=== PATIENT | male | born 1935 | race Caucasian/White ===

== ENCOUNTER → 2017-06-10 | Outpatient (CLI) | payer OTHER ==
[~2017-06-10] MED LIST: ASPCH81X PO; ATOR-22 PO; CLOP1TAB15 PO; DOCU100C31 PO; METO25TA56 PO; PANT40TA PO; TAMS0.4C38 PO
[2017-06-10 08:36] LABS: BASO % 0.3 %; BASO ABS # 0.02 K/uL (0-0.2); EOS ABS # 0.14 K/uL (0-0.5); HEMATOCRIT 31.2 % (42-52); HEMOGLOBIN 9.9 g/dL (14.0-18.0); IG# 0.08 K/uL (0.00-0.02); LYMPH % 13.5 %; LYMPH ABS # 0.94 K/uL (1.2-3.4); MEAN CELL VOLUME 93.4 fL (80-100); MEAN CORPUSCULAR HEMOGLOBIN 29.6 pg (25-34); MEAN CORPUSCULAR HGB CONC 31.7 g/dl (32-36); MEAN PLATELET VOLUME 9.6 fL (7.4-10.4); MONO % 12.8 %; MONO ABS # 0.89 K/uL (0.11-0.59); NEUT % 70.2 %; NEUT ABS # 4.87 K/uL (1.4-6.5); PLATELET COUNT 328 K/uL (130-400); RED CELL DISTRIBUTION WIDTH CV 16.8 % (11.5-14.5); RED CELL DISTRIBUTION WIDTH SD 57.8 fL (36.4-46.3); WHITE BLOOD COUNT 6.94 K/uL (4.8-10.8)
[2017-06-10 08:58] LABS: ALBUMIN 1.9 gm/dl (3.4-5.0); ALT/SGPT 18 U/L (12-78); BLOOD UREA NITROGEN 11 mg/dl (7-18); CALCIUM 8.7 mg/dl (8.5-10.1); CARBON DIOXIDE 34 mmol/L (21-32); CREATININE 0.56 mg/dl (0.60-1.40); GLUCOSE 120 mg/dl (70-99); POTASSIUM 3.6 mmol/L (3.5-5.1); SODIUM 136 mmol/L (136-145)
[2017-06-10 09:01] LABS: ALKALINE PHOSPHATASE 65 U/L (45-117); AST/SGOT 24 U/L (15-37); TOTAL PROTEIN 5.7 gm/dl (6.4-8.2)
== END ==
LOC: C.LABUPNIT 08:19
PROVIDERS: ATTEND Nurse Practitioner Family
DX: D64.9 Anemia, unspecified (principal); I10 Essential (primary) hypertension

== ENCOUNTER → 2017-06-14 | Outpatient (CLI) | payer OTHER ==
[~2017-06-14] MED LIST changes: +ACET-1175 PEG; +ALBINSX TR; +APIX1TAB3 PEG; +ASPI-461 PEG; +ATOR-22 PEG; -ATOR-22 PO; +ATRO1SOL13 SL; +CHOLCAP10 PEG; +CRD200 PEG; +FERR220E2 PEG; +FRS/40 PEG; +GUAI100S16 PEG; +IPRASOL4 INH; +LABE100T23 PEG; +LANS30TA3 PEG; +LEVO1TAB35 PEG; +LIQUID PROTEIN PEG; +LORA-741 PEG; +MELA1TAB49 PEG; +MULT1LIQ6 PEG; +NTRGSL/4 UT; +OXYC-57 PEG; +PRDXLUD MT; +SACC250C PEG
[2017-06-14 13:36] LABS: BLOOD UREA NITROGEN 19 mg/dl (7-18); CALCIUM 8.3 mg/dl (8.5-10.1); CARBON DIOXIDE 33 mmol/L (21-32); CREATININE 0.64 mg/dl (0.60-1.40); GLUCOSE 216 mg/dl (70-99); POTASSIUM 3.6 mmol/L (3.5-5.1); SODIUM 138 mmol/L (136-145)
== END ==
LOC: C.LABUPNIT 12:53
PROVIDERS: ATTEND Nurse Practitioner Family
DX: B95.61 Methicillin susceptible Staphylococcus aureus infection as the cause of diseases classified elsewhere (principal)

== ENCOUNTER → 2017-06-16 | Outpatient (CLI) | payer OTHER ==
[2017-06-16 10:23] LABS: BASO % 0.4 %; BASO ABS # 0.03 K/uL (0-0.2); EOS % 3.3 %; EOS ABS # 0.28 K/uL (0-0.5); HEMATOCRIT 29.1 % (42-52); HEMOGLOBIN 9.1 g/dL (14.0-18.0); IG# 0.07 K/uL (0.00-0.02); LYMPH ABS # 1.01 K/uL (1.2-3.4); MEAN CELL VOLUME 94.2 fL (80-100); MEAN CORPUSCULAR HEMOGLOBIN 29.4 pg (25-34); MEAN CORPUSCULAR HGB CONC 31.3 g/dl (32-36); MEAN PLATELET VOLUME 10.4 fL (7.4-10.4); MONO % 10.7 %; NEUT % 72.8 %; PLATELET COUNT 249 K/uL (130-400); RED CELL DISTRIBUTION WIDTH CV 16.8 % (11.5-14.5); RED CELL DISTRIBUTION WIDTH SD 57.6 fL (36.4-46.3); WHITE BLOOD COUNT 8.39 K/uL (4.8-10.8)
[2017-06-16 10:31] LABS: ALBUMIN 1.8 gm/dl (3.4-5.0); ALT/SGPT 33 U/L (12-78); AST/SGOT 39 U/L (15-37); BLOOD UREA NITROGEN 21 mg/dl (7-18); CALCIUM 8.5 mg/dl (8.5-10.1); CARBON DIOXIDE 34 mmol/L (21-32); CREATININE 0.55 mg/dl (0.60-1.40); GLUCOSE 108 mg/dl (70-99); POTASSIUM 4.1 mmol/L (3.5-5.1); SODIUM 135 mmol/L (136-145)
[2017-06-16 10:34] LABS: ALKALINE PHOSPHATASE 86 U/L (45-117); TOTAL PROTEIN 5.9 gm/dl (6.4-8.2)
== END ==
LOC: C.LABUPNIT 09:55
PROVIDERS: ATTEND Nurse Practitioner Family
DX: B95.61 Methicillin susceptible Staphylococcus aureus infection as the cause of diseases classified elsewhere (principal); E08.40 Diabetes mellitus due to underlying condition with diabetic neuropathy, unspecified

== ENCOUNTER → 2017-06-17 | Outpatient (CLI) | payer OTHER | LOC: C.LABUPNIT 07:59 | PROVIDERS: ATTEND Nurse Practitioner Family | DX: B95.61 Methicillin susceptible Staphylococcus aureus infection as the cause of diseases classified elsewhere (principal) ==

== ENCOUNTER 2017-06-21 09:00 | Emergency (ER) | payer OTHER ==
[~2017-06-21] VITALS: Ht 180.3 cm; Wt 89.9 kg
[2017-06-21 09:00] VITALS: TEMP 36.5; Ht 180.3 cm; Wt 89.9 kg
[~2017-06-21 09:00] MED LIST changes: -ACET-1175 PEG; -ALBINSX TR; -APIX1TAB3 PEG; -ASPI-461 PEG; -ATRO1SOL13 SL; -CHOLCAP10 PEG; -CRD200 PEG; -FERR220E2 PEG; -FRS/40 PEG; -GUAI100S16 PEG; -IPRASOL4 INH; -LABE100T23 PEG; -LANS30TA3 PEG; -LEVO1TAB35 PEG; -LIQUID PROTEIN PEG; -LORA-741 PEG; -MELA1TAB49 PEG; -MULT1LIQ6 PEG; -NTRGSL/4 UT; -OXYC-57 PEG; -PRDXLUD MT; -SACC250C PEG
[2017-06-21] MEDS ORDERED: SODIUM CHLORIDE 0.9% 1000ML 1,000 ML IV STA (09:16)
[2017-06-21] MEDS ORDERED: ALBUT/IPRATROP 3MG/0.5MG NEB 3 ML VIAL INH STA (09:16)
[2017-06-21 09:27] VITALS: PULSE 83; O2SAT 94
[2017-06-21] MEDS ORDERED: OXYC-57 PEG (09:30)
[2017-06-21] MEDS ORDERED: ATRO1SOL13 SL (09:30)
[2017-06-21] MEDS ORDERED: SACC250C PEG (09:30)
[2017-06-21] MEDS ORDERED: GUAI100S16 PEG (09:30)
[2017-06-21] MEDS ORDERED: IPRASOL4 INH (09:30)
[2017-06-21] MEDS ORDERED: NTRGSL/4 UT (09:30)
--- NOTE | 2017-06-21 09:34 | EMERGENCY ROOM VISIT NOTE ---
History Report prepared by Lizandro: Henna Jacobsen Under the Supervision of: Dr. Carla Monreal M.D. 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 He is a resident at [facility]. He has a trach in place and is on oxygen at all times. He has had increased secretions and has been having trouble breathing for the past couple of days. Per long-term notes the patient refused all of his nebulizer treatments yesterday. He has a drainage tube in place in the left lung, which staff noticed is no longer draining. He had a recent CXR which showed a new left -sided pneumonia. The patient denies any current pain. The history is limited due to the patient's non-verbal status. Source of History: patient, long-term notes History Limited By: other (non-verbal) Onset: PHYSICIAN OFFICE SECRETARY Position: chest (respiratory) Timing: worsening Review of Systems ROS is limited secondary to the patient's non-verbal status. Past Medical & Surgical Medical Problems: (1) Essential (primary) hypertension (2) Tracheostomy in place Family History Non-pertinent due to advanced age. Social History Smoking Status: Former Smoker Housing Status: long-term Occupation Status: retired Current/Historical Medications Scheduled Amiodarone HCl (Amiodarone HCl), 400 MG PEG BID Apixaban (Eliquis), 5 MG PEG BID Aspirin (Aspirin), 81 MG PEG DAILY Atorvastatin (Lipitor), 20 MG PEG QPM Chlorhexidine Gluconate (Peridex Oral Soln), 5 ML MT BID Cholecalciferol (D 5000), 5,000 UNITS PEG DAILY Ferrous Sulfate (Ferrous Sulfate), 5 ML PEG DAILY Furosemide (Lasix), 40 MG PEG DAILY Labetalol Hcl (Labetalol Hcl), 100 MG PEG BID Lansoprazole (Prevacid Solutab), 30 MG PEG DAILY Levofloxacin (Levaquin), 750 MG PEG DAILY Lorazepam (Ativan), 0.5 MG PEG BID Melatonin (Melatonin), 3 MG PEG HS Multiple Vitamins W/ Minerals (Multivitamin), 15 ML PEG DAILY Nitroglycerin (Nitrostat), 0.4 MG UT PRN [Liquid Protein], 1 BTL PEG BID Scheduled PRN Acetaminophen (Tylenol), 650 MG PEG Q6 PRN for Pain or Fever Albuterol Sulf (Albuterol Sulfate), 3 ML TR Q4 PRN for Wheezing Atropine Sulfate (Atropine Sulfate), 2 DROPS SL Q6 PRN for SECRETIONS Guaifenesin (Guaifenesin), 200 MG PEG Q6 PRN for Cough Ipratropium-Albuterol (Duoneb), 1 TREATMENT INH Q6 PRN for Wheezing Oxycodone/Acetaminophen 5MG/325MG (Percocet 5MG/325MG), 1 TABLET PEG Q4 PRN for Pain Saccharomyces Boulardii (Florastor), 250 MG PEG Q12 PRN for Diarrhea Allergies Coded Allergies: NO KNOWN DRUG ALLERGIES (Verified Allergy, Unknown, ., 06/21/17) Physical Exam Vital Signs Date Time Temp Pulse Resp B/P (MAP) Pulse Ox O2 Delivery O2 Flow Rate FiO2 06/21/17 14:28 77 18 130/71 95 T-piece 9.0 Trach Collar 06/21/17 12:53 81 18 120/68 98 Room Air 06/21/17 12:45 76 06/21/17 10:41 81 24 129/66 100 Trach Collar 10.0 50 06/21/17 09:31 Trach Collar 06/21/17 09:27 83 34 94 Trach Collar 50 06/21/17 09:15 58 06/21/17 09:10 83 06/21/17 09:00 36.5 105 17 126/66 92 Trach Collar 10.0 50 06/21/17 09:00 Trach Collar Physical Exam Vital signs reviewed. General: Elderly-appearing 81 year old male, in no significant distress, trach present with moist cough. HEENT: No scleral icterus, PERRLA, neck supple. Atraumatic. Cardiovascular: Regular rate and rhythm, no extra sounds. Pulmonary: Diminished breath sounds on the left at the base with a Pleurx catheter that is capped. 88% on trach mask. Abdomen: Soft, nontender, nondistended, positive bowel sounds. Feeding tube in epigastric region. Musculoskeletal: Atraumatic, no peripheral edema. Neurologic: Patient awake alert and nods to questioning. Mouthing words, but unable to speak. Skin: Warm, dry, no rash. He has mild erythema to the right flank, nontender, no specific warmth, lesions, or drainage. Medical Decision & Procedures ER Provider Diagnostic Interpretation: Radiology results as stated below per my review and radiologist interpretation: CHEST ONE VIEW PORTABLE HISTORY: 81 years-old Male PNA, low sats acute respiratory failure COMPARISON: CT abdomen and pelvis 04/25/2015 TECHNIQUE: Portable AP view of the chest FINDINGS: Cardiac silhouette is mildly enlarged. No pneumothorax. Small left pleural effusion with hazy multifocal alveolar opacities, notably within the perihilar distributions and right lung base and to lesser extent within the left lung base. No overt pulmonary edema. Right-sided PICC is noted with distal tip terminating in the expected region of the right atrium. Tracheostomy cannula overlies the midline at the level of the clavicular heads. Multiple mildly displaced left-sided rib fractures are present, several of which appear to be acute to subacute. Fractures are noted involving the left second through seventh ribs. IMPRESSION: 1. Multifocal alveolar opacities are present bilaterally involving the perihilar distributions and right greater than left lung bases suggesting multifocal pneumonia. Follow-up recommended. 2. Trace left pleural effusion. 3. Multiple mildly displaced left-sided rib fractures, several of which appear to be acute to subacute in nature. The above report was generated using voice recognition software. It may contain grammatical, syntax or spelling errors. Electronically signed by: Keith Singh M.D. 06/21/2017 9:46 AM Dictated Date/Time: 06/21/2017 9:43 AM Laboratory Results 06/21/17 09:43 Red Blood Count 3.28, Mean Corpuscular Volume 91.2, Mean Corpuscular Hemoglobin 28.4, Mean Corpuscular Hemoglobin Concent 31.1, Mean Platelet Volume 9.4, Neutrophils (%) (Auto) 80.9, Lymphocytes (%) (Auto) 7.3, Monocytes (%) (Auto) 8.9, Eosinophils (%) (Auto) 1.8, Basophils (%) (Auto) 0.1, Neutrophils # (Auto) 8.10, Lymphocytes # (Auto) 0.73, Monocytes # (Auto) 0.89, Eosinophils # (Auto) 0.18, Basophils # (Auto) 0.01 06/21/17 09:43 Test 06/21/17 09:43 White Blood Count 10.01 K/uL (4.8-10.8) Red Blood Count 3.28 M/uL (4.7-6.1) Hemoglobin 9.3 g/dL (14.0-18.0) Hematocrit 29.9 % (42-52) Mean Corpuscular Volume 91.2 fL (80-100) Mean Corpuscular Hemoglobin 28.4 pg (25-34) Mean Corpuscular Hemoglobin Concent 31.1 g/dl (32-36) Platelet Count 292 K/uL (130-400) Mean Platelet Volume 9.4 fL (7.4-10.4) Neutrophils (%) (Auto) 80.9 % Lymphocytes (%) (Auto) 7.3 % Monocytes (%) (Auto) 8.9 % Eosinophils (%) (Auto) 1.8 % Basophils (%) (Auto) 0.1 % Neutrophils # (Auto) 8.10 K/uL (1.4-6.5) Lymphocytes # (Auto) 0.73 K/uL (1.2-3.4) Monocytes # (Auto) 0.89 K/uL (0.11-0.59) Eosinophils # (Auto) 0.18 K/uL (0-0.5) Basophils # (Auto) 0.01 K/uL (0-0.2) RDW Standard Deviation 55.2 fL (36.4-46.3) RDW Coefficient of Variation 16.6 % (11.5-14.5) Immature Granulocyte % (Auto) 1.0 % Immature Granulocyte # (Auto) 0.10 K/uL (0.00-0.02) Anion Gap 3.0 mmol/L (3-11) Est Creatinine Clear Calc Drug Dose 123.0 ml/min Estimated GFR () 117.7 Estimated GFR (Non- 101.5 BUN/Creatinine Ratio 35.8 (10-20) Calcium Level 8.7 mg/dl (8.5-10.1) Total Bilirubin 0.2 mg/dl (0.2-1) Direct Bilirubin 0.1 mg/dl (0-0.2) Aspartate Amino Transf (AST/SGOT) 31 U/L (15-37) Alanine Aminotransferase (ALT/SGPT) 34 U/L (12-78) Alkaline Phosphatase 91 U/L (45-117) Total Creatine Kinase 21 U/L (39-308) Creatine Kinase MB 1.5 ng/ml (0.5-3.6) Creatine Kinase MB Ratio 7.1 (0-3.0) Total Protein 6.0 gm/dl (6.4-8.2) Albumin 1.8 gm/dl (3.4-5.0) Laboratory results per my review. Medications Administered Medications (Trade) Dose Ordered Sig/Willy Route Start Time Stop Time Status Last Admin Dose Admin Albuterol/ Ipratropium (Duoneb) 3 ml NOW STAT INH 06/21/17 09:16 06/21/17 09:19 DC 06/21/17 09:26 3 ML Sodium Chloride 1,000 ml @ 125 mls/hr Q8H STAT IV 06/21/17 09:16 06/21/17 14:59 DC 06/21/17 10:43 125 MLS/HR Piperacillin Sod/ Tazobactam Sod (Zosyn Iv) 4.5 gm NOW STAT IV 06/21/17 10:06 06/21/17 10:07 DC 06/21/17 10:43 4.5 GM ECG Per My Interpretation Indication: SOB/dyspnea Rate (beats per minute): 82 Rhythm: sinus rhythm Findings: 1st degree AV block, no acute ischemic change, no ectopy, other (non- specific intraventricular conduction delay; poor baseline) ED Course 902: Past medical records reviewed. The patient was evaluated in room A12B. A complete history and physical examination was performed. 0916: NSS 1000 ml @ 125 mls/hr IV, DuoNeb 3 ml INH 1006: Zosyn 4.5 gm IV 1238: I reassessed the patient at this time. He is resting comfortably. I discussed the results and treatment plan with the patient and his family. I answered all pertaining questions that they had. They expressed understanding and verbalized agreement. The patient will be discharged home. Medical Decision Differential diagnosis: Etiologies such as infections, reactive airway disease, pneumonia, pneumothorax , COPD, CHF, cardiac ischemia, pulmonary embolism, musculoskeletal, gastrointestinal, as well as others were entertained. This pt was evaluated and appeared to be in no distress. IV access was obtained and lab work was drawn. Pt was hydrated with NSS. Pt was given IV zosyn 4.5 gm IV. Resp therapy gave a duoneb tx and suctioned the trach. CXR reveals a multifocal PNA. Lab work reveals a chronic anemia, normal WBC. Pt is afebrile. Pt is on a trach collar mask. After d/w pharmacist, po levaquin will be continued, no additional therapy recommended at this time. There is some d/w family, NH and hospice regarding care moving forward. At this time CM contacted [facility] and services are not in place for d/c home. Pt was transported back to [facility] for further care. He will return to the ED for worsening of symptoms or any medical concerns. Medication Reconcilliation Current Medication List: was personally reviewed by me Blood Pressure Screening Patient's blood pressure: Normal blood pressure Impression Primary Impression: Pneumonia Additional Impression: Tracheostomy in place Scribe Attestation The scribe's documentation has been prepared under my direction and personally reviewed by me in its entirety. I confirm that the note above accurately reflects all work, treatment, procedures, and medical decision making performed by me. Departure Information Dispostion Home / Self-Care Referrals Pedro Garcia (PCP) Forms HOME CARE DOCUMENTATION FORM, IMPORTANT VISIT INFORMATION, WORK / SCHOOL INSTRUCTIONS Patient Instructions My [facility] Additional Instructions Diagnosis: Pneumonia Continue Levaquin as prescribed. Continue nebulizers and trach suctioning. Follow-up with your physician for reevaluation this week. Return to the ER for worsening of symptoms or any medical concerns. Problem Qualifiers
[2017-06-21] MEDS ORDERED: LEVO1TAB35 PEG (09:40)
[2017-06-21] MEDS ORDERED: FRS/40 PEG (09:40)
[2017-06-21] MEDS ORDERED: ACET-1175 PEG (09:40)
[2017-06-21] MEDS ORDERED: ASPI-461 PEG (09:40)
[2017-06-21] MEDS ORDERED: FERR220E2 PEG (09:40)
[2017-06-21] MEDS ORDERED: LANS30TA3 PEG (09:40)
[2017-06-21] MEDS ORDERED: MELA1TAB49 PEG (09:40)
[2017-06-21] MEDS ORDERED: ALBINSX TR (09:40)
[2017-06-21] MEDS ORDERED: CRD200 PEG (09:40)
[2017-06-21] MEDS ORDERED: CHOLCAP10 PEG (09:40)
[2017-06-21] MEDS ORDERED: MULT1LIQ6 PEG (09:40)
[2017-06-21] MEDS ORDERED: APIX1TAB3 PEG (09:45)
[2017-06-21] MEDS ORDERED: LABE100T23 PEG (09:45)
[2017-06-21] MEDS ORDERED: PRDXLUD MT (09:45)
[2017-06-21] MEDS ORDERED: LORA-741 PEG (09:45)
[2017-06-21] MEDS ORDERED: LIQUID PROTEIN PEG (09:45)
--- NOTE | 2017-06-21 09:48 | DIAGNOSTIC IMAGING REPORT ---
CHEST ONE VIEW PORTABLE HISTORY: 81 years-old Male PNA, low sats acute respiratory failure COMPARISON: CT abdomen and pelvis 04/25/2015 TECHNIQUE: Portable AP view of the chest FINDINGS: Cardiac silhouette is mildly enlarged. No pneumothorax. Small left pleural effusion with hazy multifocal alveolar opacities, notably within the perihilar distributions and right lung base and to lesser extent within the left lung base. No overt pulmonary edema. Right-sided PICC is noted with distal tip terminating in the expected region of the right atrium. Tracheostomy cannula overlies the midline at the level of the clavicular heads. Multiple mildly displaced left-sided rib fractures are present, several of which appear to be acute to subacute. Fractures are noted involving the left second through seventh ribs. IMPRESSION: 1. Multifocal alveolar opacities are present bilaterally involving the perihilar distributions and right greater than left lung bases suggesting multifocal pneumonia. Follow-up recommended. 2. Trace left pleural effusion. 3. Multiple mildly displaced left-sided rib fractures, several of which appear to be acute to subacute in nature. The above report was generated using voice recognition software. It may contain grammatical, syntax or spelling errors. Electronically signed by: Keith Singh M.D. 06/21/2017 9:46 AM Dictated Date/Time: 06/21/2017 9:43 AM
[2017-06-21] MEDS ORDERED: PIPERACILLIN/TAZOBACTAM 4.5 GM/100ML D5W IV STA (10:06)
[2017-06-21 10:07] LABS: BASO % 0.1 %; BASO ABS # 0.01 K/uL (0-0.2); EOS % 1.8 %; EOS ABS # 0.18 K/uL (0-0.5); HEMATOCRIT 29.9 % (42-52); HEMOGLOBIN 9.3 g/dL (14.0-18.0); LYMPH % 7.3 %; LYMPH ABS # 0.73 K/uL (1.2-3.4); MEAN CELL VOLUME 91.2 fL (80-100); MEAN CORPUSCULAR HEMOGLOBIN 28.4 pg (25-34); MEAN CORPUSCULAR HGB CONC 31.1 g/dl (32-36); MEAN PLATELET VOLUME 9.4 fL (7.4-10.4); MONO % 8.9 %; MONO ABS # 0.89 K/uL (0.11-0.59); NEUT % 80.9 %; PLATELET COUNT 292 K/uL (130-400); RED CELL DISTRIBUTION WIDTH CV 16.6 % (11.5-14.5); RED CELL DISTRIBUTION WIDTH SD 55.2 fL (36.4-46.3); WHITE BLOOD COUNT 10.01 K/uL (4.8-10.8)
[2017-06-21 10:29] LABS: ALBUMIN 1.8 gm/dl (3.4-5.0); CALCIUM 8.7 mg/dl (8.5-10.1); CREATININE 0.51 mg/dl (0.60-1.40); POTASSIUM 3.9 mmol/L (3.5-5.1)
[2017-06-21 10:32] LABS: CKMB 1.5 ng/ml (0.5-3.6)
[2017-06-21 14:28] VITALS: BP 130/71; PULSE 77; O2SAT 95
== END 2017-06-21 14:48 ==
LOC: C.EDA 09:00 → EDBD 09:00 → C.EDA 14:48
DX: J18.9 Pneumonia, unspecified organism (principal); Z93.0 Tracheostomy status; Z99.81 Dependence on supplemental oxygen; I10 Essential (primary) hypertension; Z79.01 Long term (current) use of anticoagulants; Z79.82 Long term (current) use of aspirin; Z87.891 Personal history of nicotine dependence